=== PATIENT | female | born 1990 | race Caucasian/White ===

== ENCOUNTER 2016-03-08 22:44 | Emergency (ER) | payer SELFPAY ==
[2016-03-08 22:58] VITALS: BP 101/60; PULSE 63; TEMP 97.7
[2016-03-08 22:59] VITALS: BMI 20.2
--- NOTE | 2016-03-08 23:16 | EDPRACDOC ---
- General Information Chief Complaint: Toothache Stated Complaint: ? ABSCESS WITH LT UPPER JAW PAIN HEADACHE Time Seen by Provider: 03/08/16 23:11 Information Source: Patient Mode Of Arrival: Car Home Medications: Home Medications Vits W-Ca,Fe,FA(<1Mg) [] 1 each PO DAILY 01/07/15 Ibuprofen Tablet [Motrin] 800 mg PO Q6-8H PRN #30 tab 08/02/15 Oxycodone HCl/Acetaminophen [Percocet 5-325 mg Tablet] 1 - 2 tab PO Q4H PRN #60 tab 08/02/15 Hydrocodone/Acetaminophen [Lortab 5-325 mg Tablet] 1 each PO Q4H PRN #15 tablet 03/08/16 Penicillin V Potassium 500 mg PO QID #28 tablet 03/08/16 Probiotic Blend [Jo-Ann Q] 1 each PO DAILY #30 tab 03/08/16 Allergies/Adverse Reactions: Allergies Allergy/AdvReac Type Severity Reaction Status Date / Time No Known Allergies Allergy Verified 07/10/15 12:29 - History of Present Illness Onset: 3 days HPI: PT SAID THAT SHE'S HAD A BAD TOOTH FOR AWHILE, BUT IT HAS BEEN VERY PAINFUL FOR THE PAST 3 DAYS. ED Past Medical History - Patient Medical History GI/ History: Reports: Urinary Tract Infection Psychological History: Denies: Depression Systemic History: Denies: Cancer Surgical History: Reports: Other (CSXN) - Family Medical History Reports: Hypertension (mgf, father), Diabetes (mother, mgm), Cancer (mother), Stroke (pgf, mgm), Cardiac Disorders (mgf) - Social Medical History Smoking Status: Never smoker ETOH: None Substance Abuse: None Lives In: Home EDM Review of Systems - Review of Systems ROS Negative Except as Marked: Yes All systems reviewed and were negative except as marked Mouth: Tooth Pain - Physical Exam Constitutional: Alert (Awake), No apparent distress Oriented to: Time, Person, Place Last recorded Vital Signs: Last Vital Signs Temp 97.7 F 03/08/16 22:55 Pulse 63 03/08/16 22:55 Resp 18 03/08/16 22:55 BP 101/60 03/08/16 22:55 Pulse Ox 98 03/08/16 22:55 Oxygen Pulse Oxygen Saturation 98 O2 Device Room Air Oxygen Flow Rate Fraction of Inspired Oxygen ( FIO2) - HEENT Head: Normal ( normocephalic) Eye Exam: Normal (PERRL, EOMI, Sclera white) Oropharynx: Other (DENTAL CARIES) ENT EAC: Normal TMJ: Normal Nose: No Symptoms Reported (septum midline) Neck: Normal (FROM, trachea at midline) - Respiratory/Cardiovascular Respiratory: Normal - CTA (BBS clear to auscultation without adventitious sounds ) Cardiovascular: Normal (RRR without murmur, gallop or rub) Decision Time to Discharge: 23:18 - Departure Yes I personally saw and evaluated the patient. Disposition: Home Condition: Fair Final Diagnosis: Dental caries Instructions: Dental Caries (ED) Education/Counseling Given To: Patient Education/Counseling Given Regarding: Diagnosis, Treatment, Follow Up Referrals: None,No Provider [Primary Care Provider] - One Week Josh Goodwin MD [Staff Physician] - One Week Prescriptions: New Hydrocodone/Acetaminophen [Lortab 5-325 mg Tablet] 1 each PO Q4H PRN #15 tablet PRN Reason: Pain Penicillin V Potassium 500 mg PO QID #28 tablet Probiotic Blend [Jo-Ann Q] 1 each PO DAILY #30 tab No Action Vits W-Ca,Fe,FA(<1Mg) [] 1 each PO DAILY Ibuprofen Tablet [Motrin] 800 mg PO Q6-8H PRN #30 tab PRN Reason: Pain Oxycodone HCl/Acetaminophen [Percocet 5-325 mg Tablet] 1 - 2 tab PO Q4H PRN # 60 tab PRN Reason: Pain Additional Instructions: F/U WITH DENTIST
[2016-03-08] MEDS ORDERED: PENICILLIN 250 MG TAB PO ONE (23:20)
[2016-03-08] MEDS ORDERED: IBUPROFEN 600 MG TAB PO ONE (23:20)
== END 2016-03-08 23:35 | disposition home or self-care (01) ==
LOC: ED 22:44
DX: K02.9 Dental caries, unspecified (principal)
CPT/HCPCS: 99282; J3490